=== PATIENT | male | born 1995 | race Caucasian/White ===

== ENCOUNTER → 2017-08-12 | Day surgery (SDC) | payer OTHER ==
[~2017-08-12] MED LIST: ACETAMINOPHEN/HYDROcodone 325 MG/5 MG TAB ONE; BUPIVACAINE HCL PF 0.75% 30 ML VIAL ONE; KETOROLAC TROMETHAMINE 30 MG/ML (IVP) VIAL IV PUSH ONE; LACTATED RINGER'S 1000 ML INJ 1,000 ML ONE; MEPERIDINE HCL 25 MG/ML VIAL ONE; MIDAZOLAM HCL 5 MG/ML VIAL (1 ML) ONE; ONDANSETRON HCL 4 MG/2 ML VIAL IV PUSH ONE; PROPOFOL 200 MG/20 ML AMP IV ONE; ceFAZolin INJ 1,000 MG VIAL ONE
--- NOTE | 2017-08-12 10:41 | MP ---
cc: Ajit Fischer MD DATE OF OPERATION: 08/12/2017 PREOPERATIVE DIAGNOSIS: Right shoulder recurrent anterior dislocation. POSTOPERATIVE DIAGNOSIS: Right shoulder recurrent anterior dislocation. PROCEDURE: Right shoulder open Bankart repair. SURGEON: Ajit Fischer MD. KENO CLERK: CAMDEN Brewster. ANESTHESIA: General with anterior interscalene block. ESTIMATED BLOOD LOSS: 50 mL. COMPLICATIONS: None. IMPLANTS USED: Arthrex. JUSTIFICATION: This patient is a 22-year-old male who has had multiple dislocations of his right shoulder. He has failed conservative treatment. He was evaluated in the undersigned at the [facility]. The patient was counseled as to the risks, benefits and alternatives of the above named proposed surgical procedure. He did wish to proceed with surgery. PROCEDURE IN DETAIL: Written consent was obtained. The patient identified by name, taken to the operating room, placed supine on the operating room table and anesthesia was administered to the patient, as well as 2 grams of IV Ancef. He did receive a preoperative anterior interscalene block. The patient was carefully placed in a beach chair position. All bony prominences and pressure points were well padded. The patient's neck position was carefully monitored and kept neutral. The right shoulder and right upper extremity were prepped and draped using Isuprel alcohol, Hibiclens solution and DuraPrep solution. After a time-out was performed, a longitudinal incision made over the anterior aspect of the right shoulder. The deltopectoral interval was explored. The conjoined tendon was retracted in a medial direction to allow exposure of the subscapularis tendon. The subscapularis tendon was split in a transverse manner in line with its fibers and this was elevated off the anterior shoulder capsule. A capsulotomy incision was performed down to the level of the glenoid and labrum. At this point, 3 Arthrex 3 mm BioComposite SutureTak anchors were inserted along the anterior aspect of the glenoid beginning at the 5:30 position and then going superiorly. Subsequently, the suture lasso was then used to shuttle the FiberWire suture from the anchors in a horizontal mattress pattern through the torn capsule and labrum. Sequential sliding knots were then tied to repair the capsule and labrum in this region. Subsequently, the anterior shoulder capsule was then repaired with multiple FiberWire sutures for further tightening and imbrication to allow for appropriate stabilization of the shoulder. The subscapularis tendon was repaired primarily with #2 FiberWire suture. The surgical wound was thoroughly irrigated with sterile saline solution. The subcutaneous layer was closed with 3-0 Vicryl suture. Skin incision closed with Dermabond. Sterile dressing applied. The patient tolerated the procedure well. No intraoperative complications noted. Antonio Aquino, Physician Supervisor Computer Operations, Certified, was present during the entire procedure to include patient positioning and procedure itself. The medical necessity of physician payroll human resources assistant was indicated in this case due to complexity of the procedure. He assisted with appropriate manipulation of the arm, as well as, retraction muscle, tendon, bone and neurovascular structures. He assisted with implantation of the suture anchors and also with the repair of the labrum and capsule. Ajit Fischer MD JWM/VERONICA , 10:22 AM , 10:40 AM
== END | disposition home or self-care (01) ==
LOC: ESDC 06:54
PROVIDERS: ATTEND Orthopaedic Surgery Sports Medicine
DX: M24.411 Recurrent dislocation, right shoulder (principal)
CPT/HCPCS: 01630; 01991; 23455; 64417; C1713; J0690; J1885; J2175; J2250; J2405; J7120